=== PATIENT | female | born 1970 | race African-American/Black ===

== ENCOUNTER 2018-08-26 09:22 | Day surgery (SDC) | payer OTHER ==
[~2018-08-26 09:22] MED LIST: CEFAZOLIN 2 GM/50 ML (PMX) 50 ML IVPB; SOD CHLORIDE 0.9% 1,000 ML IV
[2018-08-26 10:23] LABS: ADD MAN DIFF? NO
[2018-08-26 10:25] LABS: BASOPHIL # 0.1 10^3/ul (0.0-0.1); BASOPHILS % 0.8 % (0.0-2.0); EOSINOPHILS # 0.1 10^3/ul (0.0-0.5); EOSINOPHILS % 1.2 % (0.0-7.0); HEMATOCRIT 42.5 % (37.0-47.0); HEMOGLOBIN 13.8 g/dl (12.0-16.0); LYMPHOCYTES # 2.4 10^3/ul (0.8-2.9); LYMPHOCYTES % 31.9 % (15.0-51.0); MEAN CORPUSCULAR HEMOGLOBIN 26.3 pg (29.0-33.0); MEAN CORPUSCULAR HGB CONC 32.5 g/dl (32.0-37.0); MEAN PLATELET VOLUME 9.3 fl (7.4-10.4); MONOCYTE # 0.6 10^3/ul (0.3-0.9); MONOCYTES % 7.4 % (0.0-11.0); NEUTROPHIL # 4.4 10^3/ul (1.6-7.5); NEUTROPHILS % 58.3 % (39.0-77.0); PLATELET COUNT 327 10^3/UL (140-415); RED BLOOD COUNT 5.25 10^6/ul (4.20-5.40); RED CELL DISTRIBUTION WIDTH 13.8 % (11.5-14.5)
[2018-08-26 10:25] LABS: WHITE BLOOD COUNT 7.5 10^3/ul (4.8-10.8)
[2018-08-26 11:14] LABS: ALANINE AMINOTRANSFERASE 30 IU/L (13-69); ALBUMIN 4.2 g/dl (3.3-4.9); ALKALINE PHOSPHATASE 78 IU/L (42-121); ANION GAP 10 (5-13); ASPARTATE AMINO TRANSFERASE 25 IU/L (15-46); BILIRUBIN,INDIRECT 0.5 mg/dl (0-1.1); BILIRUBIN,TOTAL 0.5 mg/dl (0.2-1.3); BLOOD UREA NITROGEN 12 mg/dl (7-20); CALCIUM 9.5 mg/dl (8.4-10.2); CARBON DIOXIDE 25 mmol/L (21-31); CHLORIDE 108 mmol/L (97-110); CREATININE 0.65 mg/dl (0.44-1.00); Estimated GFR > 60 mL/min (>60); GLUCOSE 136 mg/dl (70-220); POTASSIUM 3.6 mmol/L (3.5-5.1); SODIUM 143 mmol/L (135-144); TOTAL PROTEIN 7.7 g/dl (6.1-8.1)
[2018-08-26] MEDS ORDERED: KETOROLAC 30 MG INJ (11:18)
[2018-08-26] MEDS ORDERED: ONDANSETRON 4 MG INJ (11:18)
[2018-08-26] MEDS ORDERED: MIDAZOLAM 1 MG/ML 2 ML INJ (11:18)
[2018-08-26] MEDS ORDERED: PROPOFOL 20 ML (11:18)
[2018-08-26 11:49] LABS: INR 0.95; PROTIME 12.8 Sec (11.9-14.9)
[2018-08-26 11:50] LABS: PARTIAL THROMBOPLASTIN TIME 30.9 Sec (23.0-35.0)
[2018-08-26] MEDS ORDERED: SUCCINYLCHOLINE CHLORIDE 100 MG/5 ML SYG IV (12:11)
[2018-08-26] MEDS ORDERED: ROCURONIUM 50 MG INJ (12:11)
[2018-08-26] MEDS ORDERED: FENTAnyl 50 MCG/ML VIAL IV (12:30)
[2018-08-26] MEDS ORDERED: OXYCODONE/ACETAMINOPHEN (5/325) TAB PO (12:30)
[2018-08-26] MEDS: BUPIVACAINE 0.25% (MPF) 30 ML INJ (12:51)
[2018-08-26] MEDS ORDERED: GLYCOPYRROLATE 0.4 MG INJ (13:29)
[2018-08-26] MEDS ORDERED: NEOSTIGMINE 3 MG/3 ML SYRINGE (13:29)
[2018-08-26] MEDS: BACITRACIN/POLYMYXIN 28.35 GM OINT TOP (13:34)
[2018-08-26] MEDS: HYDROmorphONE 1 MG/5 ML IV SYRINGE IV ×3 (14:07→14:25)
[2018-08-26] MEDS: ONDANSETRON 4 MG INJ IV ×2 (14:07→15:23)
[2018-08-26] MEDS: HYDROCODONE/APAP (5/325) TAB PO (16:27)
== END 2018-08-26 16:55 | disposition home or self-care (01) ==
LOC: SDS 09:22
DX: L72.11 Pilar cyst (principal); I10 Essential (primary) hypertension; E11.9 Type 2 diabetes mellitus without complications; Z79.84 Long term (current) use of oral hypoglycemic drugs
CPT/HCPCS: 14301; 80053; 82962; 85025; 85610; 85730; 88307